=== PATIENT | male | born 2000 | race Caucasian/White ===

== ENCOUNTER 2021-02-21 15:59 | Emergency (ER) | payer OTHER, MEDICAID, SELFPAY ==
[2021-02-21 16:00] VITALS: BP 111/67; PULSE 56; RESP 16; TEMP 37.1; O2SAT 100; BMI 19.1
[2021-02-21 16:06] VITALS: PULSE 66; RESP 16; O2SAT 100
--- NOTE | 2021-02-21 16:14 | EKG12_ITS ---
Test Reason : CP Blood Pressure : / mmHG Vent. Rate : 055 BPM Atrial Rate : 055 BPM P-R Int : 128 ms QRS Dur : 094 ms QT Int : 392 ms P-R-T Axes : 041 069 063 degrees QTc Int : 375 ms Sinus bradycardia Otherwise normal ECG Confirmed by CARLOS BERNARDO, SHEILA ([id number]), senior technical editor KAYLA PANTOJA ([id number]) on 02/25/2021 9:59:14 AM Referred By: SHRUTHI Confirmed By:SHEILA GONZALEZ MD
--- NOTE | 2021-02-21 16:15 | EX.ED.DYSGE1 ---
HPI History of Present Illness Chief Complaint: Chest Pain Detail of Chief Complaint: chest pain to right side x2 days Informant: parent, legal guardian, spouse/S.O., family, friend, EMS, police/master deputy sheriff court security, PCP, SNF, mental health staff and other Onset/Context/Timing Current Severity: Moderate Narrative Narrative: Patient presents with right-sided chest pain that started 2 days ago. Patient states the pain is there all the time but waxes and wanes in intensity. Patient describes a tightness and at times it sharp. Pain is sometimes worse with deep breath and certain movements. He denies recent travel or surgery. No history of PE or DVT. No clotting disorder history. Patient states he has had increased stress lately and does have history of some anxiety but does not take anything medicine for it. He is never had pain like this before. Patient denies recent illness or cough or fever. Prior similar symptoms: No PFSH PFSH Home Medications NK 02/21/21 [History Last Taken Unknown] Allergy/AdvReac Type Severity Reaction Status Date / Time No Known Allergies Allergy Verified 02/21/21 16:00 Surgical History (Updated 02/21/21 @ 16:08 by Di Soler) Hx of appendectomy Social History Smoking Status: Never smoker ROS ROS ED Constitutional Constitutional ED: Reports systems reviewed and no addt'l complaints, except as documented; Denies body ache(s), change in weight or chills Eyes Eyes: Denies acute decrease in peripheral vision, change in vision, double vision or loss of vision ENT ENT ED: Reports none; Denies ear pain, lip swelling, loss taste/smell, neck pain, otalgia or sore throat Cardiovascular Cardiovascular: Reports none and chest pain; Denies abdominal pain, chest pain with activity, leg edema, lightheadedness, palpitations, rapid heart rate or syncope Respiratory/Chest Respiratory/Chest: Reports none; Denies change in mental status, dry cough, dyspnea, hemoptysis, shortness of breath at rest or shortness of breath with exertion Gastrointestinal Gastrointestinal: Reports none; Denies abdominal pain, change in stool character, diarrhea, hematemesis, hematochezia, melena, rectal bleeding or vomiting Genitourinary Genitourinary ED: Reports none; Denies abdominal discomfort, anuria, dysuria, genital pain or polyuria Musculoskeletal Musculoskeletal: Reports none; Denies arthralgias, back pain, difficulty walking, extremity pain, muscle weakness or myalgias Integumentary Reports none; Denies abscess or rash Neurologic Neurologic: Reports none; Denies abnormal gait, confusion, focal weakness, frequent falls, headache(s), loss of vision, numbness, paresthesias, radicular pain, vertigo or weakness Psychiatric Psychiatric: Reports systems reviewed and no addt'l complaints, except as documented and none; Denies behavioral changes, confusion, difficulty concentrating, hallucinations, suicidal ideation, tactile hallucinations or visual hallucinations Endocrine Endocrinology: Denies none, cold intolerance, excessive sweating, fatigue or heat intolerance Hematologic/Lymphatic Hematologic/Lymphatic: Reports none; Denies anemia, easy bleeding or easy bruising Allergic/Immunologic Allergic/Immunologic ED: Denies as per HPI, none, lip swelling, mouth swelling, throat swelling, tongue swelling or hives EXAM Physical Exam Const Vital Signs: 02/21/21 16:00 02/21/21 16:06 02/21/21 17:02 Temperature 98.8 F Temperature Source Oral Pulse Rate 56 L 66 53 L Respiratory Rate 16 16 18 Respiratory Effort Normal Non-Labored Respiratory Pattern Normal Blood Pressure 111/67 111/66 Blood Pressure Mean 81 81 Pulse Ox 100 100 98 Oxygen Delivery Method Room Air Room Air Positive well nourished and well developed General Appearance ED: well developed and NAD HEENT Reports TM's clear and moist mucous membranes normocephalic and atraumatic; Negative for trauma or tenderness Tympanic Membrane ED: Yes TM's clear Eyes PERRL and EOMs intact bilaterally General Eye ED: Negative for pale conjunctiva or scleral icterus Neck no lymphadenopathy, supple and no JVD General: Negative for tenderness Chest Wall inspection of chest normal and palpation of chest normal Chest: Negative for tenderness Resp normal respiratory effort and clear to auscultation bilaterally Effort and Inspection: Negative for respiratory distress or pain with movement Auscultation: Negative for rhonchi, wheezes or diminished lung sounds Cardio regular rate, regular rhythm, S1 normal heart sound, S2 normal heart sound and no murmurs Peripheral Pulses: pulses 2+ throughout GI normal to inspection, nondistended, normoactive bowel sounds, soft to palpation, non-tender, non-distended and no masses Back/Spine no CVA tenderness and no thoracic nor lumbar tenderness Extremity normal to inspection General Extremety ED: Negative for edema General Extremity: Negative for edema Neuro oriented x3, CN's II-XII intact bilaterally, no sensory deficits noted and gait normal Sensorium / Orientation: awake, alert, oriented to person, oriented to place and oriented to time Motor Exam: strength 5/5 throughout and strength abnormal Psych mental status grossly normal Skin no rashes or lesions noted and no wounds MDM MDM MDM Narrative Medical decision making narrative: Etiology of patient's chest pain unclear. Patient advised to use ibuprofen for discomfort. Patient will be referred to primary care physician for follow-up in 3 to 5 days. Patient to return if worsening pain, fever, increasing shortness of breath, or condition should worsen anyway. Lab Data Labs: Laboratory Results - last 24 hr 02/21/21 02/21/21 02/21/21 16:20 16:20 16:20 WBC 9.8 RBC 4.65 Hgb 13.1 Hct 40.4 MCV 86.9 MCH 28.2 MCHC 32.4 RDW Std Deviation 39.3 RDW Coeff of Nany 12.2 Plt Count 265 MPV 9.3 Immature Gran % (Auto) 0.400 Neut % (Auto) 64.7 Lymph % (Auto) 22.0 Wilkinson % (Auto) 8.1 Eos % (Auto) 4.2 Baso % (Auto) 0.6 Absolute Neuts (auto) 6.4 Absolute Lymphs (auto) 2.16 Nucleated RBC % 0 ESR 11 D-Dimer Quant (PE/DVT) < 0.27 L Sodium 140 Potassium 3.7 Chloride 107 Carbon Dioxide 25.0 Anion Gap 8 BUN 12 Creatinine 0.79 Estim Creat Clear Calc 131.49 Est GFR (MDRD) Af Amer 159 Est GFR (MDRD) Non-Af 131 BUN/Creatinine Ratio 15.1 Glucose 109 H Calcium 9.0 Troponin I High Sens < 3.0 L Radiography Chest X-Ray - ED: 1 View Diagnostic Testing: Radiology Impression Chest X-Ray 02/21/21 16:30 IMPRESSION: Normal x-ray examination of the chest. Electronically Signed: Douglas Wilson MD at 16:52 EDT , Service support , 1 view chest x-ray obtained interpreted by myself as no acute disease process. Radiology was in agreement. EKG Initial EKG: Comments: Sinus rhythm with a ventricular rate of 55 bpm with no acute ST segment changes. No evidence for pericarditis. Discharge Plan Triage Chief Complaint: Chest Pain ED Provider: Bentley Kay Dx/Rx/DC Orders Clinical Impression: Chest pain Instructions: ED Chest Pain, Uncertain Cause Prescriptions: No Action NK RF: 0 Primary Care Provider: Care Physician,No Primary Referrals: Joie Zaidi MD [STAFF PHYSICIAN] - 3-5 Days Care Physician,No Primary [Primary Care Provider] - Disposition Disposition: Home, Self Care
--- NOTE | 2021-02-21 16:30 | RAD_ITS ---
STUDY: X-RAY CHEST REASON FOR EXAM: Male, 20 years old. chest pain TECHNIQUE: Single AP portable view of the chest. COMPARISON: None. FINDINGS: The lungs are clear and expanded. There is no demonstrated pleural abnormality. Normal size heart. Normal mediastinum and veronica. Normal visualized pulmonary arteries. Normal visualized aortic arch and descending thoracic aorta. Normal visualized thoracic spine. Normal visualized ribs, clavicles, and shoulders. There is no demonstrated abnormality of the visualized soft tissue structures of the upper abdomen. RAD/Chest 1 View (Portable) IMPRESSION: Normal x-ray examination of the chest. Electronically Signed: Douglas Wilson MD at 16:52 EDT , Service support ,
[2021-02-21 16:31] LABS: Absolute Lymphocyte Count 2.16 X10^3/uL (0.83-4.51); Absolute Neutrophil Count 6.4 X10^3/uL (2.0-7.7); Basophil# 0.06 X10^3/uL; Basophil% 0.6 % (0-1); Eosinophil# 0.41 X10^3/uL; Eosinophils% 4.2 % (0-5); Hematocrit 40.4 % (40-54); Hemoglobin 13.1 g/dL (13.0-16.5); Lymphocyte # 2.16 X10^3/ul (0.83-4.51); Mean Corp Hgb Conc 32.4 g/dL (32-36); Mean Corpuscular Hgb 28.2 pg (27.0-32.0); Mean Corpuscular Volume 86.9 fL (80-94); Mean Platelet Vol. 9.3 fl (6.2-12.0); Monocyte# 0.79 X10^3/uL; Monocyte% 8.1 % (0-10); NRBC Flagged by Analyzer 0 % (0-5); Neutrophil # 6.35 X10^3/uL (2.7-7.7); Neutrophil % 64.7 % (47-70); Platelet Count 265 K/mm3 (150-450); RBC Distribution Width CV 12.2 % (11.6-14.6); RBC Distribution Width SD 39.3 fl (35.1-43.9); Red Blood Count 4.65 M/mm3 (4.6-6.2); White Blood Count 9.8 K/mm3 (4.4-11.0)
[2021-02-21 16:42] LABS: Erythrocyte Sedimentation Rate 11 mm/hr (0-20)
[2021-02-21 16:48] LABS: D-Dimer Quantitative (DVT/PE) < 0.27 FEU/ug/m (0.27-0.49)
[2021-02-21 16:54] LABS: Anion Gap 8 (5-15); BUN 12 mg/dL (7-18); BUN/Creat Ratio 15.1 RATIO (10-20); Chloride 107 mmol/L (98-107); Creatinine, Serum 0.79 mg/dL (0.70-1.30); EST Glomerular Filtration Rate 131 mL/min (>60); Est Glom Filt Rate - Afr Amer 159 mL/min (>60); Estimated Creatinine Clearance 131.49 ml/min; Glucose 109 mg/dL (74-106); Potassium 3.7 mmol/L (3.5-5.1); Sodium Level 140 mmol/L (136-145); Troponin-I HS < 3.0 pg/mL (3.0-78.5)
[2021-02-21 17:02] VITALS: BP 111/66; PULSE 53; RESP 18; O2SAT 98
[2021-02-21 17:28] VITALS: BP 134/78; PULSE 56; RESP 16; O2SAT 99
== END 2021-02-21 17:28 | disposition home or self-care (01) ==
PROVIDERS: Emergency Provider Emergency Medicine
DX: R07.9 Chest pain, unspecified (principal)
CPT/HCPCS: 71045; 80048; 84484; 85025; 85379; 85652; 93005; 99284